=== PATIENT | male | born 1950 | race Hispanic/Latino ===

== ENCOUNTER 2021-08-14 13:43 | Emergency (ER) | payer OTHER ==
[~2021-08-14 13:43] MED LIST: Iopamidol 370 76% 100 ML VIAL ONE
[2021-08-14] MEDS ORDERED: Fentanyl 100 MCG/2 ML VIAL ONE (14:22)
[2021-08-14 15:24] LABS: #Basophils 0.1 thou/uL (0.0-0.2); #Eosinphils 0.1 thou/uL (0.0-0.7); #Lymphocytes 1.2 thou/uL (1.20-3.40); #Monocytes 0.6 thou/uL (0.11-0.59); #Neutrophils 10.1 thou/uL (1.40-6.50); %Basophils 0.4 % (0.0-1.0); %Monocytes 5.3 % (0.0-10.0); %Neutrophils 83.3 % (42.0-75.0); Hemoglobin 15.4 g/dL (14.0-18.0); Mean Corpuscular HGB CONC 31.8 g/dL (32.0-36.0); Mean Corpuscular Hemoglobin 30.4 pg (27.0-31.0); Mean Corpuscular Volume 95.6 fL (78.0-98.0); Mean Platelet Volume 6.6 fL (7.4-10.4); Platelet Count 252 thou/uL (130-400); RBC Distribution Width 12.3 % (11.5-14.5); Red Blood Cell (RBC) Count 5.06 mill/uL (4.70-6.10); White Blood Cell (WBC) Count 12.1 thou/uL (4.8-10.8)
[2021-08-14 15:39] LABS: ALT (SGPT) 43 U/L (8-55); AST (SGOT) 38 U/L (5-34); Albumin 3.9 g/dL (3.4-4.8); Alkaline Phosphatase 100 U/L (40-110); Anion Gap 14 mmol/L (10-20); BUN (Urea Nitrogen) 15 mg/dL (8.4-25.7); Bilirubin, Total 0.5 mg/dL (0.2-1.2); CK (CPK) 253 U/L (30-200); Calc. Creatinine Clearance 0 mL/min (70-130); Calcium 8.6 mg/dL (7.8-10.44); Carbon Dioxide 20 mmol/L (23-31); Chloride 105 mmol/L (98-107); Glucose 125 mg/dL (80-115); Lipase 46 U/L (8-78); Potassium 3.6 mmol/L (3.5-5.1); Protein, Total 7.9 g/dL (5.8-8.1); Sodium 135 mmol/L (136-145)
[2021-08-14] MEDS ORDERED: Ketorolac Tromethamine 30 MG/ML VIAL ONE (16:16)
== END 2021-08-14 16:26 | disposition home or self-care (01) ==
LOC: NAV ERS 13:43
DX: S20.219A Contusion of unspecified front wall of thorax, initial encounter (principal); V43.52XA Car driver injured in collision with other type car in traffic accident, initial encounter
CPT/HCPCS: 70450; 71260; 74177; 80053; 82550; 83690; 84484; 85025; 93005; 96374; 96375; J1885; J3010; Q9967